=== PATIENT | female | born 1965 | race Caucasian/White ===

== ENCOUNTER 2024-11-07 18:08 | Emergency (ER) | payer OTHER, SELFPAY ==
[2024-11-07 18:10] VITALS: BP 137/77
[2024-11-07 18:25] LABS: Urine Albumin Negative (Neg - Trace); Urine Bilirubin Negative (Negative); Urine Character Clear (Clear); Urine Color Yellow; Urine Glucose Negative (Negative); Urine Ketone Negative (Negative); Urine Leukocyte Negative (Negative); Urine Nitrite Negative (Negative); Urine Occult Blood Negative (Negative); Urine Specific Gravity 1.005 (<1.030); Urine Urobilinogen Negative (Neg - 1+)
--- NOTE | 2024-11-07 19:35 | ED.GENMED ---
History of Present Illness
General
Chief Complaint: Abdominal Pain
Source: patient
Exam Limitations: none
Time Seen by Provider: 11/07/24 19:20
History of Present Illness
History of Present Illness:
59yoF with a history of hypothyroidism presenting for evaluation of abdominal pain. Symptoms began 2 weeks ago with what she thought was a UTI although those symptoms resolved. She developed pain about 4 days ago. Pain is localized in the right
lower quadrant and is described as a stabbing, churning pain. Pain comes in waves and she has periods where she is completely pain-free. She increased her water intake which did seem to help slightly. Pain has been persistent and she decided to
go to urgent care this evening. A urinalysis was obtained in urgent care which reportedly showed some hematuria but did not show any signs of infection. She was sent to the ED for evaluation. She denies any fevers, nausea, vomiting, constipation,
dysuria. Patient did have loose stools a few days ago but stopped her magnesium supplement 2 days ago which seemed to help. Prior abdominal surgeries include 2 sections.
Phy Exam
General Physical Exam
General Presentation: well appearing and no apparent distress
General age: appears stated age
General Skin: warm and dry
General Habitus: normal
General Mental: alert
ENT Exam
ENT Exam: normocephalic
Cardiovascular Exam
Cardiovascular Exam: regular rate/rhythm
Pulmonary Exam
Pulmonary Exam: lungs clear, no respiratory distress, no rales, no crackles and no rhonchi
Gastrointestinal Exam
Gastrointestinal Exam: normal bowel sounds, soft, non distended, no cva tenderness and other (+Focal tenderness to RLQ. Abdomen soft, non-distended. No rebound or guarding. Normoactive bowel sounds.)
Neurological Exam
Neurological Exam: alert
Onel Coma Scale
Eye Opening: Spontaneous
Verbal Response: Oriented
Motor Response: Obeys Commands
GCS Total Score: 15
Skin Exam
Skin Exam: normal color and warm/dry
Psychiatric Exam
Psychiatric Exam: normal mood/affect
Course
Orders/Labs/Results
Orders:
Orders
11/07/24 18:19
Urinalysis Reflex To Culture Urgent
Date Specimen was Collected: 11/07/24
Time Specimen was Collected: 18:17
11/07/24 19:35
CT Abd/pelvis W Iv Cont Urgent
Comment:
Reason For Exam: RLQ pain
0.9% Sodium Chloride 1000 ml [Nss] 1,000 ml IV BOLUS
Ketorolac [Toradol] 15 mg IV NOW STA
11/07/24 19:53
Complete Blood Count/With Diff Urgent
Comprehensive Metabolic Panel Urgent
Abnormal Lab Results
11/07/24
19:53
Glucose 113 H mg/dl
(70-99)
11/07/24 19:53
11/07/24 19:53
Vital Signs
Initial and Last Documented VS:
Initial Vital Signs
Temp Pulse Resp BP Pulse Ox
98.2 F 82 16 137/77 97
11/07/24 18:10 11/07/24 18:10 11/07/24 18:10 11/07/24 18:10 11/07/24 18:10
Last Documented Vital Signs
Temp Pulse Resp BP Pulse Ox
98.2 F 67 18 120/69 96
11/07/24 18:10 11/07/24 22:28 11/07/24 22:28 11/07/24 22:25 11/07/24 20:50
MDM/Problems Addressed
Differential Diagnosis Includes:
59yoF here with RLQ pain x 4 days. Stabbing pain that comes in waves. Otherwise asymptomatic. VSS. She is well appearing in no distress. No signs of peritonitis on abdominal exam. Differential diagnosis includes but is not limited to: appendicitis,
ovarian cyst, kidney stone, mesenteric adenitis
Initial ED plan: UA obtained in triage is unremarkable. Will check CBC, CMP, and CT abdomen. IV Toradol and fluid bolus for symptoms.
*Critical Care Note
Total Time (30-74mins, 75-104mins- exclusive of procedures): Not Applicable
Update Note
Update Note:
Labs unremarkable including normal white count, renal function, and LFTs. CT abdomen is negative for acute findings. Appendix is normal and there is evidence of obstructive uropathy. There is mild to moderate colonic fecal burden. Patient is
feeling improved on reassessment. No indication for hospitalization. Unclear etiology of symptoms. She does have an appointment with TECHNICAL TRAINING MANAGER scheduled for tomorrow. She was also advised to follow-up her PCP. ED return precautions reviewed.
Patient in agreement with plan and was discharged in stable condition.
ED Attending Note
-
Portions of this chart may have been created with voice recognition software.� Occasional wrong word or��sound alike� substitutions may have occurred due to the inherent limitations of voice recognition software.
Discharge Plan
Departure
Patient Disposition: Home (Routine Discharge)
Date of Disposition: 11/07/24
Time of Disposition: 22:22
Patient with high blood pressure during this ER visit?: No
Discharge Problem:
Right lower quadrant pain
Instructions: Abdominal Pain
Referrals:
UNKNOWN - PT DOES,NOT KNOW [Unknown Provider] -
Activity Restrictions/Additional Instructions:
Please follow-up with your family doctor and TECHNICAL TRAINING MANAGER tomorrow as previously scheduled. Return to the ER immediately with any new or worsening symptoms including fevers or severe pain.
Interventions
Interventions:
*Risk Screen - Suicide Last Done: 11/07/24 18:10
*General Assessment Last Done: 11/07/24 19:47
*Neglect/Abuse Screening Last Done: 11/07/24 18:10
*ED- Fall Risk Assessment Last Done: 11/07/24 18:10
*ED COVID-19 Vaccine History Last Done: 11/07/24 19:47
*Nursing Disposition Last Done: 11/07/24 22:29
DS-Glchgx-Iivujpwehe Assessment Last Done: 11/07/24 19:46
Discharge Date and Time
Discharge Date/Time: 11/07/24 22:31
Print Language: GEORGIAN
[2024-11-07 19:46] VITALS: BMI 28.2
[2024-11-07] MEDS: TORADOL 15 MG IV (19:54)
[2024-11-07] MEDS: NSS 1000 IV (19:54)
[2024-11-07 19:58] VITALS: BP 104/90
[2024-11-07 20:00] VITALS: BP 119/74
[2024-11-07 20:14] LABS: % Basophils 0.7 % (0-2); % Eosinophils 3.7 % (0-6); % Immature Granulocytes 0.1 % (0-0.5); % Lymphocytes 34.2 % (20.5-51.1); % Monocytes 7.7 % (1.7-9.3); % Neutrophils 53.6 % (42.2-75.2); Absolute Basophils 0.1 10^3/uL (0-0.2); Absolute Eosinophils 0.3 10^3/uL (0-0.7); Absolute Lymphocytes 2.4 10^3/uL (1.2-3.4); Absolute Monocytes 0.5 10^3/uL (0.1-0.6); Absolute Neutrophils 3.8 10^3/uL (1.4-6.5); Hematocrit 44.3 % (37.0-47.0); Hemoglobin 15.4 g/dL (12.0-16.0); Mean Corp Hgb Conc. 34.8 g/dL (33.0-37.0); Mean Corpuscular Hgb 28.7 pg (27.0-31.0); Mean Corpuscular Volume 82.6 fL (81.0-99.0); Mean Platelet Volume 8.6 fL (7.4-10.4); Nucleated Red Blood Cells % 0 %; Platelet Count 271 10^3/uL (130-400); Red Blood Cell Count 5.36 10^6/uL (4.20-5.40)
[2024-11-07 20:27] LABS: ALT (SGPT) 12 U/L (0-35); AST (SGOT) 21 U/L (14-36); Albumin 4.1 g/dl (3.5-5.0); Alkaline Phosphatase 73 U/L (38-126); Blood Urea Nitrogen 13 mg/dl (7-17); Calcium 9.9 mg/dl (8.4-10.2); Carbon Dioxide 29 mmol/L (22-30); Chloride 103 mmol/L (98-107); Estimated Creatinine Clearance 72 ml/min; Glucose 113 mg/dl (70-99); Potassium 4.1 mmol/L (3.5-5.1); Sodium 141 mmol/L (135-145); Total Bilirubin 0.5 mg/dl (0.2-1.3); Total Protein 6.7 g/dl (6.3-8.2); eGFR > 60.00
[2024-11-07 22:25] VITALS: BP 120/69
== END 2024-11-07 22:31 | disposition home or self-care (01) ==
LOC: EMR 18:08
PROVIDERS: Emergency Medicine; Physician Assistant; EMERGENCY PHYSICIAN Student in an Organized Health Care Education/Training Program; FAMILY PHYSICIAN Family Medicine
DX: R10.31 Right lower quadrant pain (principal); E03.9 Hypothyroidism, unspecified
CPT/HCPCS: 99284; 96374; 96361; 74177; 80053; 81003; 85025; Q9967